=== PATIENT | male | born 1995 | race Caucasian/White ===

== ENCOUNTER 2017-05-23 14:31 | Inpatient (IN) | payer MEDICAID, OTHER ==
[~2017-05-23] VITALS: Ht 175.3 cm; Wt 89.6 kg
[2017-05-23] MEDS ORDERED: DIVA500T35 PO (14:49)
[2017-05-23 15:24] LABS: BASOPHILS % (AUTO) 0.3 % (0.0-2.0); HEMATOCRIT 48.4 % (41-53); HEMOGLOBIN 16.6 g/dL (13.5-17.5); LYMPHOCYTES # (AUTO) 1.6 K/uL (1.0-4.8); LYMPHOCYTES % (AUTO) 22.2 % (22.0-44.0); MEAN CORPUSCULAR HEMOGLOBIN 30.8 pg (26.0-34.0); MEAN CORPUSCULAR HGB CONC 34.4 G/dL (31.0-37.0); MEAN CORPUSCULAR VOLUME 90 fL (80-100); MONOCYTES # (AUTO) 0.5 K/uL (0.1-1.0); MONOCYTES % (AUTO) 6.9 % (2.0-9.0); NEUTROPHILS # (AUTO) 4.9 K/uL (1.8-7.7); NEUTROPHILS % (AUTO) 68.6 % (40.0-70.0); PLATELET COUNT (AUTO) 228 K/uL (150-450); RED BLOOD CELL COUNT(AUTO) 5.39 MIL/uL (4.50-5.90); WHITE BLOOD COUNT (AUTO) 7.1 K/uL (4.5-11.0)
[2017-05-23] MEDS ORDERED: LORazepam 1 MG TABLET PO ONE (15:30)
[2017-05-23 15:37] LABS: ALANINE AMINOTRANSFERASE 19 U/L (12-78); ALBUMIN 4.1 g/dL (3.4-5.0); ANION GAP 13 mmol/L (8-16); ASPARTATE AMINOTRANSFERASE 15 U/L (15-37); BILIRUBIN,TOTAL 0.6 mg/dL (0.1-1.0); CALCIUM, TOTAL 8.3 mg/dL (8.8-10.5); CARBON DIOXIDE 22 mmol/L (22-29); CHLORIDE 104 mmol/L (98-107); CREATININE 0.81 mg/dL (0.60-1.30); GLOMERULAR FILTR. RATE CALC > 60 mL/min (>60); POTASSIUM 3.2 mmol/L (3.5-5.1); SODIUM SERUM 139 mmol/L (136-145); TOTAL PROTEIN, SERUM 7.3 g/dL (6.4-8.2); UREA NITROGEN, BLOOD 9 mg/dL (7-18)
[2017-05-23] MEDS ORDERED: SODIUM CHLORIDE 0.9% 250 ML IRRIG SOLUTION BOTTLE IRRIG ONE (15:45)
[2017-05-23] MEDS ORDERED: PERTUSS(ACELL),DIPH,TET VAC/PF 0.5 ML VIAL IM ONE (15:45)
[2017-05-23 16:10] LABS: VALPROIC ACID < 3 mcg/mL (50-100)
[2017-05-23] MEDS ORDERED: POTASSIUM CHLORIDE 20 MEQ ER TABLET PO ONE (16:30)
[2017-05-23] MEDS ORDERED: VALPROATE SODIUM 1,000 MG in DEXTROSE 5%-WATER 100 ML IV ONE (16:30)
[2017-05-23] MEDS ORDERED: LIDOCAINE HCL 1% 10 ML VIAL INJ ONE (18:00)
[2017-05-23 20:19] LABS: APPEARANCE,URINE TURBID (CLEAR); GLUCOSE, URINE (UA) NEGATIVE (NEGATIVE); KETONES,URINE 40 mg/dL (NEGATIVE); LEUKOCYTE ESTERASE ,URINE NEGATIVE (NEGATIVE); OCCULT BLOOD,URINE NEGATIVE (NEGATIVE); PROTEIN,URINE TRACE (NEGATIVE)
[2017-05-23 20:25] LABS: ADD UA MICROSCOPIC NO
[2017-05-23 20:45] VITALS: BP 118/57
[2017-05-23 20:49] LABS: CHOL/HDL RATIO 6.5 (4.2-7.3)
[2017-05-23] MEDS: ZOLPIDEM TARTRATE 10 MG TABLET PO PRN (20:53)
[2017-05-23] MEDS ORDERED: INFLUENZA VIRUS VACCINE QVS 2017-18 (3YR+)/PF 60 MCG/0.5 ML SYRINGE IM ONE (23:00)
[2017-05-24] MEDS: LevETIRAcetam 500 MG TABLET PO SCH ×2 (09:46→17:55)
[2017-05-24] MEDS: DIVALPROEX SODIUM 500 MG DR TABLET PO SCH ×2 (09:46→17:55)
[2017-05-24 10:00] VITALS: BP 151/89
[2017-05-24] MEDS ORDERED: ACETAMINOPHEN 325 MG TABLET PO PRN (14:45)
[2017-05-24] MEDS ORDERED: IBUPROFEN 400 MG TABLET PO PRN (14:45)
[2017-05-24] MEDS ORDERED: LORazepam 2 MG/ML VIAL ONE (14:58)
[2017-05-24] MEDS ORDERED: DiphenhydrAMINE HCL 50 MG/ML VIAL ONE (14:58)
[2017-05-24] MEDS ORDERED: HALOPERIDOL LACTATE 5 MG/ML VIAL ONE (14:58)
[2017-05-24] MEDS ORDERED: HALOPERIDOL LACTATE 5 MG/ML VIAL IM ONE (15:00)
[2017-05-24] MEDS ORDERED: DiphenhydrAMINE HCL 50 MG/ML VIAL IM ONE (15:00)
[2017-05-24] MEDS ORDERED: LORazepam 2 MG/ML VIAL IM ONE (15:00)
[2017-05-24 20:24] VITALS: BP 114/50
[2017-05-25 06:56] VITALS: BP 111/45
[2017-05-25] MEDS: DIVALPROEX SODIUM 500 MG DR TABLET PO SCH ×2 (08:10→16:30)
[2017-05-25] MEDS: HALOPERIDOL 5 MG TABLET PO PRN ×2 (08:10→18:08)
[2017-05-25] MEDS: LevETIRAcetam 500 MG TABLET PO SCH ×2 (08:10→16:30)
[2017-05-25] MEDS: RisperiDONE 1 MG TABLET PO SCH ×2 (08:10→16:30)
[2017-05-25] MEDS: LORazepam 2 MG TABLET PO PRN ×2 (08:10→18:08)
[2017-05-25 11:00] VITALS: BP 136/68
[2017-05-25 16:00] VITALS: BP 128/72
[2017-05-26] MEDS: DIVALPROEX SODIUM 500 MG DR TABLET PO SCH ×2 (09:33→16:34)
[2017-05-26] MEDS: RisperiDONE 1 MG TABLET PO SCH ×2 (09:33→16:34)
[2017-05-26] MEDS: LevETIRAcetam 500 MG TABLET PO SCH ×2 (09:33→16:34)
[2017-05-26] MEDS: ONDANSETRON HCL 4 MG TABLET PO PRN (12:34)
[2017-05-26] MEDS ORDERED: MECLIZINE HCL 12.5 MG TABLET PO PRN (15:00)
[2017-05-26] MEDS: AmLODIPine BESYLATE 5 MG TABLET PO SCH (15:07)
[2017-05-26 16:54] VITALS: BP 129/72
[2017-05-26] MEDS ORDERED: DiphenhydrAMINE HCL 50 MG/ML VIAL IM ONE (18:45)
[2017-05-27] MEDS: ZOLPIDEM TARTRATE 10 MG TABLET PO PRN (00:03)
[2017-05-27 00:04] VITALS: BP 114/73
[2017-05-27 08:10] VITALS: BP 124/59
[2017-05-27] MEDS: DIVALPROEX SODIUM 500 MG DR TABLET PO SCH ×2 (09:06→16:56)
[2017-05-27] MEDS: RisperiDONE 1 MG TABLET PO SCH ×2 (09:07→16:56)
[2017-05-27] MEDS: AmLODIPine BESYLATE 5 MG TABLET PO SCH (09:07)
[2017-05-27] MEDS: LevETIRAcetam 500 MG TABLET PO SCH ×2 (09:07→16:56)
[2017-05-27 16:19] VITALS: BP 132/75
[2017-05-27] MEDS: LORazepam 2 MG TABLET PO PRN (17:56)
[2017-05-28 08:30] VITALS: BP 115/61
[2017-05-28] MEDS: AmLODIPine BESYLATE 5 MG TABLET PO SCH (09:00)
[2017-05-28] MEDS: RisperiDONE 1 MG TABLET PO SCH ×2 (09:00→17:00)
[2017-05-28] MEDS: LevETIRAcetam 500 MG TABLET PO SCH ×2 (09:00→17:00)
[2017-05-28] MEDS: DIVALPROEX SODIUM 500 MG DR TABLET PO SCH ×2 (09:13→17:00)
[2017-05-28] MEDS: LORazepam 2 MG TABLET PO PRN (16:28)
[2017-05-28 17:04] VITALS: BP 127/86
[2017-05-28] MEDS: ONDANSETRON HCL 4 MG TABLET PO PRN (18:54)
[2017-05-28] MEDS: ZOLPIDEM TARTRATE 10 MG TABLET PO PRN (20:24)
[2017-05-29] MEDS: AmLODIPine BESYLATE 5 MG TABLET PO SCH (09:00)
[2017-05-29] MEDS: DIVALPROEX SODIUM 500 MG DR TABLET PO SCH ×2 (09:00→16:00)
[2017-05-29] MEDS: LevETIRAcetam 500 MG TABLET PO SCH ×2 (09:00→16:00)
[2017-05-29] MEDS: RisperiDONE 1 MG TABLET PO SCH ×2 (09:00→16:01)
[2017-05-29 10:46] VITALS: BP 120/76
[2017-05-29] MEDS: NICOTINE 21 MG/24 HOUR PATCH TD SCH (12:03)
[2017-05-29 16:53] VITALS: BP 126/84
[2017-05-30 00:10] VITALS: BP 120/75
[2017-05-30] MEDS: ZOLPIDEM TARTRATE 10 MG TABLET PO PRN (00:10)
[2017-05-30] MEDS: LORazepam 2 MG TABLET PO PRN (00:11)
[2017-05-30 08:30] VITALS: BP 131/85
[2017-05-30] MEDS: LevETIRAcetam 500 MG TABLET PO SCH ×2 (09:00→16:48)
[2017-05-30] MEDS: DIVALPROEX SODIUM 500 MG DR TABLET PO SCH ×2 (09:00→16:48)
[2017-05-30] MEDS: AmLODIPine BESYLATE 5 MG TABLET PO SCH (09:00)
[2017-05-30] MEDS: RisperiDONE 1 MG TABLET PO SCH ×2 (09:00→16:48)
[2017-05-30] MEDS: NICOTINE 21 MG/24 HOUR PATCH TD SCH (10:54)
== END 2017-05-30 18:45 | disposition left against medical advice (07) | DRG 750 ==
LOC: EEVIPCON 14:39 → EMS 14:39 → 3EI 20:17
PROVIDERS: ADMIT Psychiatry & Neurology Psychiatry; ATTEND Psychiatry & Neurology Psychiatry
PROC: 3E0234Z Introduction of Serum, Toxoid and Vaccine into Muscle, Percutaneous Approach (ICD-10-PCS; principal; 2017-05-23)
DX: F25.9 Schizoaffective disorder, unspecified (principal); F22 Delusional disorders; F32.9 Major depressive disorder, single episode, unspecified; E78.5 Hyperlipidemia, unspecified; E87.6 Hypokalemia; F17.210 Nicotine dependence, cigarettes, uncomplicated; G40.909 Epilepsy, unspecified, not intractable, without status epilepticus; S61.512A Laceration without foreign body of left wrist, initial encounter; Z79.899 Other long term (current) drug therapy; Z23 Encounter for immunization; Z53.21 Procedure and treatment not carried out due to patient leaving prior to being seen by health care provider
CPT/HCPCS: 12002; 70450; 90471; 90715; 96365; 96366; 99285; 99406; G0480; J1200; J1630; J2060; J3490; J7060; Q0162